=== PATIENT | male | born 1980 ===

== ENCOUNTER 2017-07-10 20:09 | Emergency (ER) | payer OTHER ==
[2017-07-10 20:10] VITALS: BMI 35.7
[2017-07-10 20:43] VITALS: BP 115/71; PULSE 78; RESP 18; TEMP 98.3; O2SAT 98
[2017-07-10] MEDS ORDERED: Silver Sulfadiazine 1% CREAM (50 gm) TOP STA (21:23)
[2017-07-10] MEDS ORDERED: Tdap Vaccine 0.5 ml Vial (10-64 yrs) IM ONE ×2 (21:23→21:57)
[2017-07-10] MEDS ORDERED: Silver Sulfadiazine 1% CREAM (50 gm) ONE (21:57)
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
== END 2017-07-10 22:15 | disposition home or self-care (01) ==
LOC: H.ER 20:09
DX: T21.02XA Burn of unspecified degree of abdominal wall, initial encounter (principal); X11.8XXA Contact with other hot tap-water, initial encounter; F17.200 Nicotine dependence, unspecified, uncomplicated; Z79.82 Long term (current) use of aspirin; Z23 Encounter for immunization